=== PATIENT | female | born 1965 | race Caucasian/White ===

== ENCOUNTER 2022-01-10 15:19 | Emergency (ER) | payer MEDICAID ==
[~2022-01-10] VITALS: Ht 154.9 cm; Wt 70.0 kg
[2022-01-10 15:33] VITALS: BP 142/95
== END 2022-01-10 20:20 | disposition left against medical advice (07) ==
LOC: ER 15:19
DX: Z53.21 Procedure and treatment not carried out due to patient leaving prior to being seen by health care provider (principal)

== ENCOUNTER 2022-03-17 10:40 | Emergency (ER) | payer MEDICAID ==
[~2022-03-17] VITALS: Ht 157.5 cm; Wt 75.0 kg
[2022-03-17 10:50] VITALS: BP 143/110
[2022-03-17] MEDS ORDERED: ACETAMINOPHEN 325MG TABLET PO ONE (13:45)
== END 2022-03-17 15:11 | disposition home or self-care (01) ==
LOC: ER 10:40
DX: M79.18 Myalgia, other site (principal); R58 Hemorrhage, not elsewhere classified
CPT/HCPCS: 73030; 99283

== ENCOUNTER 2022-07-11 13:46 | Emergency (ER) | payer MEDICAID ==
[~2022-07-11] VITALS: Ht 157.5 cm; Wt 76.0 kg
[2022-07-11 13:53] VITALS: BP 159/107
[2022-07-11] MEDS ORDERED: ACETAMINOPHEN 325MG TABLET PO ONE (16:45)
[2022-07-11] MEDS ORDERED: ONDANSETRON 4MG ODT PO ONE (16:45)
[2022-07-11] MEDS ORDERED: NAPR-681 MT (18:49)
== END 2022-07-11 19:06 | disposition home or self-care (01) ==
LOC: ER 13:46
DX: R51.9 Headache, unspecified (principal); R03.0 Elevated blood-pressure reading, without diagnosis of hypertension
CPT/HCPCS: 70450; 99284; Q0162

== ENCOUNTER 2022-11-25 09:59 | Inpatient (IN) | payer SELFPAY ==
[~2022-11-25] VITALS: Ht 162.6 cm; Wt 70.3 kg
[~2022-11-25 09:59] MED LIST: NAPR-681 MT
[2022-11-25] MEDS ORDERED: MORPHINE SULFATE 4 MG/ML CPJ (NOT FOR IM USE) IV ONE (10:15)
[2022-11-25 10:31] LABS: BASOPHILS % 0.6 % (0.0-2.0); EOSINOPHILS % 2.2 % (0.0-5.0); HEMATOCRIT. 41.6 % (36.0-48.0); HEMOGLOBIN. 14.4 g/dL (12.0-16.0); LYMPHOCYTES % 29.4 % (20.0-50.0); MEAN CORPUSCULAR HEMOGLOBIN 31.5 pg (28.0-32.0); MEAN CORPUSCULAR VOLUME 91.1 fL (81.0-99.0); MEAN PLATELET VOLUME 7.3 fl (7.4-10.4); MONOCYTES % 8.2 % (2.0-8.0); NEUTROPHILS % 59.6 % (40.0-76.0); PLATELET 313 x1000/uL (130-400); RED BLOOD CELL COUNT 4.56 mill/uL (4.2-5.4); RED CELL DISTRIBUTION WIDTH 12.4 % (11.6-14.6)
[2022-11-25 10:40] LABS: CHLORIDE 106 mEq/L (98-107)
[2022-11-25] MEDS ORDERED: ACETAMINOPHEN 325MG TABLET PO ONE (12:00)
[2022-11-25] MEDS ORDERED: KETOROLAC 30MG/ML VIAL IV ONE (12:45)
[2022-11-25] MEDS ORDERED: METOCLOPRAMIDE HCL 10MG/2ML VIAL IV ONE (12:45)
[2022-11-25] MEDS ORDERED: CLONIDINE 0.1MG TABLET PO PRN (15:00)
[2022-11-25] MEDS: AMLODIPINE 5MG TABLET PO SCH ×2 (15:00→20:56)
[2022-11-25 15:35] LABS: PHOSPHORUS 3.3 mg/dL (2.5-4.9); T4 FREE 1.06 ng/dL (0.76-1.46)
[2022-11-25 15:51] LABS: VITAMIN B12 SERUM 703 pg/mL (211-911)
[2022-11-25 15:53] LABS: FOLIC ACID (FOLATE) SERUM > 20.00 ng/mL (>5.38)
[2022-11-25] MEDS: ASPIRIN 81MG TABLET PO SCH (16:00)
[2022-11-25] MEDS ORDERED: ACETAMINOPHEN 325MG TABLET PO PRN (16:15)
[2022-11-25] MEDS ORDERED: IPRATROPIUM/ALBUTEROL 0.5-3(2.5)MG/3ML NEB HHN PRN (16:15)
[2022-11-25] MEDS ORDERED: GUAIFENESIN 200MG/10ML SUGAR FREE UDC PO PRN (16:15)
[2022-11-25] MEDS ORDERED: DOCUSATE SODIUM 100MG CAPSULE PO PRN (16:15)
[2022-11-25] MEDS ORDERED: MAGNESIUM/ALUMINUM HYDROXIDE/SIMETHICONE 30ML UDC PO PRN (16:15)
[2022-11-25] MEDS ORDERED: ONDANSETRON HCL 4MG/2ML INJ IV PRN (16:15)
[2022-11-25] MEDS: ENOXAPARIN 40MG/0.4ML SYR SUBCUT SCH (16:30)
[2022-11-25] MEDS ORDERED: ATORVASTATIN CALCIUM 40MG TABLET PO SCH (21:00)
[2022-11-25 23:15] VITALS: BP 166/98
[2022-11-26] VITALS: BP 145/82
[2022-11-26 04:00] VITALS: BP 152/91
[2022-11-26] MEDS: ACETAMINOPHEN 325MG TABLET PO PRN ×2 (05:52→12:02)
[2022-11-26] MEDS: DICLOFENAC SODIUM 75MG DR (EC) TABLET PO PRN ×2 (05:52→20:35)
[2022-11-26 06:14] LABS: CLARITY URINE CLEAR (CLEAR); COLOR URINE YELLOW (YELLOW); KETONES URINE NEGATIVE (NEGATIVE); LEUKOCYTE ESTERASE URINE NEGATIVE (NEGATIVE); NITRITE URINE NEGATIVE (NEGATIVE); OCCULT BLOOD URINE NEGATIVE (NEGATIVE); PROTEIN URINE NEGATIVE (NEGATIVE)
[2022-11-26 06:41] LABS: *AMPHETAMINES SCREEN URINE NEGATIVE (NEGATIVE); *BARBITURATES SCREEN URINE NEGATIVE (NEGATIVE); *BENZODIAZEPINES SCREEN URINE NEGATIVE (NEGATIVE); *COCAINE SCREEN URINE NEGATIVE (NEGATIVE); CANNABINOID URINE SCREEN NEGATIVE (NEGATIVE); METHADONE URINE SCREEN NEGATIVE (NEGATIVE); OPIATES URINE SCREEN NEGATIVE (NEGATIVE); PHENCYCLIDINE URINE SCREEN NEGATIVE (NEGATIVE)
[2022-11-26 06:55] LABS: BASOPHILS % 0.4 % (0.0-2.0); EOSINOPHILS % 0.1 % (0.0-5.0); HEMATOCRIT. 42.8 % (36.0-48.0); HEMOGLOBIN. 14.9 g/dL (12.0-16.0); LYMPHOCYTES % 16.4 % (20.0-50.0); MEAN CORPUSCULAR HEMOGLOBIN 31.6 pg (28.0-32.0); MEAN CORPUSCULAR VOLUME 91.2 fL (81.0-99.0); MEAN PLATELET VOLUME 8.2 fl (7.4-10.4); MONOCYTES % 6.7 % (2.0-8.0); NEUTROPHILS % 76.4 % (40.0-76.0); PLATELET 320 x1000/uL (130-400); RED CELL DISTRIBUTION WIDTH 12.5 % (11.6-14.6)
[2022-11-26 07:49] LABS: CHLORIDE 104 mEq/L (98-107)
[2022-11-26 08:00] VITALS: BP 132/77
[2022-11-26 08:40] LABS: HEPATITIS B SURFACE ANTIGEN NEGATIVE
[2022-11-26] MEDS ORDERED: METOPROLOL TARTRATE 5MG/5ML VIAL IV PRN (09:00)
[2022-11-26] MEDS: AMLODIPINE 5MG TABLET PO SCH ×2 (09:38→20:26)
[2022-11-26] MEDS: ASPIRIN 81MG TABLET PO SCH (09:38)
[2022-11-26] MEDS: CHLORTHALIDONE 25MG TABLET PO SCH (09:39)
[2022-11-26] MEDS: PANTOPRAZOLE 40MG DR TABLET PO SCH (09:39)
[2022-11-26 12:00] VITALS: BP 127/74
[2022-11-26 16:00] VITALS: BP 141/91
[2022-11-26] MEDS: ENOXAPARIN 40MG/0.4ML SYR SUBCUT SCH (18:07)
[2022-11-26 20:00] VITALS: BP 152/90
[2022-11-27] VITALS: BP 114/69
[2022-11-27 04:00] VITALS: BP 116/73
[2022-11-27 05:27] LABS: BASOPHILS % 0.3 % (0.0-2.0); EOSINOPHILS % 2.5 % (0.0-5.0); HEMATOCRIT. 43.2 % (36.0-48.0); HEMOGLOBIN. 14.6 g/dL (12.0-16.0); LYMPHOCYTES % 29.5 % (20.0-50.0); MEAN CORPUSCULAR HEMOGLOBIN 31.2 pg (28.0-32.0); MEAN CORPUSCULAR VOLUME 92.5 fL (81.0-99.0); MEAN PLATELET VOLUME 7.5 fl (7.4-10.4); MONOCYTES % 11.1 % (2.0-8.0); NEUTROPHILS % 56.6 % (40.0-76.0); PLATELET 333 x1000/uL (130-400); RED BLOOD CELL COUNT 4.67 mill/uL (4.2-5.4); RED CELL DISTRIBUTION WIDTH 12.5 % (11.6-14.6)
[2022-11-27 05:48] LABS: CHLORIDE 103 mEq/L (98-107)
[2022-11-27] MEDS: PANTOPRAZOLE 40MG DR TABLET PO SCH (06:20)
[2022-11-27 08:00] VITALS: BP 118/74
[2022-11-27] MEDS: ASPIRIN 81MG TABLET PO SCH (08:34)
[2022-11-27] MEDS: CHLORTHALIDONE 25MG TABLET PO SCH (08:34)
[2022-11-27] MEDS: AMLODIPINE 5MG TABLET PO SCH (08:48)
[2022-11-27 12:00] VITALS: BP 112/76
[2022-11-27 13:51] VITALS: BP 112/76
[2022-11-28] MEDS ORDERED: FAMOTIDINE 20MG TABLET PO SCH (07:40)
== END 2022-11-27 15:15 | disposition home or self-care (01) | DRG 243 ==
LOC: ER 09:59 → EDBEDREQ 12:32 → 7WST 12:39
PROVIDERS: ADMIT Hospitalist; ATTEND Hospitalist
DX: K21.9 Gastro-esophageal reflux disease without esophagitis (principal); I20.0 Unstable angina; M94.0 Chondrocostal junction syndrome [Tietze]; R74.01 Elevation of levels of liver transaminase levels; E78.5 Hyperlipidemia, unspecified; I51.7 Cardiomegaly; R10.13 Epigastric pain; K22.4 Dyskinesia of esophagus
CPT/HCPCS: 36415; 71045; 80048; 80053; 80061; 80305; 80320; 81003; 82607; 82746; 83036; 83735; 83880; 84100; 84439; 84443; 84484; 85025; 85379; 86803; 87340; 93005; 93306; 93970; 99285; J1650; J1885; J2270; J2405; J2765; G0480

== ENCOUNTER 2023-10-24 18:58 | Emergency (ER) | payer MEDICAID, OTHER ==
[~2023-10-24] VITALS: Ht 162.6 cm; Wt 75.0 kg
[2023-10-24 19:04] VITALS: O2SAT 94
[2023-10-24] MEDS: KETOROLAC 30MG/ML VIAL IV ONE (20:14)
[2023-10-24] MEDS: ASPIRIN 81MG TABLET PO ONE (20:15)
[2023-10-24] MEDS: NITROGLYCERIN OINT 1GM/INCH UDPKT TD ONE (20:18)
[2023-10-24 20:38] LABS: BASOPHILS % 0.7 % (0.0-2.0); EOSINOPHILS % 3.2 % (0.0-5.0); HEMOGLOBIN. 13.4 g/dL (12.0-16.0); LYMPHOCYTES % 34.5 % (20.0-50.0); MEAN CORPUSCULAR HEMOGLOBIN 31.4 pg (28.0-32.0); MEAN CORPUSCULAR HGB CONC 34.3 g/dL (31.0-37.0); MEAN CORPUSCULAR VOLUME 91.6 fL (81.0-99.0); MEAN PLATELET VOLUME 7.3 fl (7.4-10.4); MONOCYTES % 9.2 % (2.0-8.0); NEUTROPHILS % 52.4 % (40.0-76.0); PLATELET 294 x1000/uL (130-400); RED BLOOD CELL COUNT 4.26 mill/uL (4.2-5.4); RED CELL DISTRIBUTION WIDTH 12.6 % (11.6-14.6); WHITE BLOOD COUNT 6.6 x1000/uL (4.5-11.0)
[2023-10-24 20:44] LABS: CHLORIDE 107 mEq/L (98-107); POTASSIUM 4.2 mEq/L (3.5-5.1); SODIUM 139 mEq/L (136-145)
[2023-10-24 20:45] LABS: CARBON DIOXIDE 29 mEq/L (21-32)
[2023-10-24 20:46] LABS: PROTHROMBIN TIME 10.9 sec (9.6-11.0)
[2023-10-24 20:50] LABS: CREATININE 0.6 mg/dL (0.6-1.0); GLUCOSE 90 mg/dL (70-105); UREA NITROGEN BLOOD 15 mg/dL (9-23)
[2023-10-24 20:52] LABS: ALANINE AMINOTRANSFERASE 26 IU/L (10-49); ALBUMIN 4.4 g/dL (3.2-4.8); ASPARTATE AMINOTRANSFERASE 26 IU/L (<34); BILIRUBIN TOTAL 0.6 mg/dL (0.1-1.0); ETHANOL BLOOD < 10 mg/dL (<10); TROPONIN I HIGH SENSITIVITY < 4 ng/L (3.0-34)
[2023-10-24 20:53] LABS: PROTEIN TOTAL 7.8 g/dL (6.0-8.3)
[2023-10-24 23:30] VITALS: BP 145/92; PULSE 74; RESP 16; TEMP 98.2
== END 2023-10-24 23:48 | disposition short-term general hospital (02) ==
LOC: ER 18:58
DX: R07.89 Other chest pain (principal); I10 Essential (primary) hypertension; Z91.148 Patient's other noncompliance with medication regimen for other reason
CPT/HCPCS: 80053; 80320; 83880; 85025; 85610; 84484; 36415; 71045; 93005; 96374; 99285; Z7610 ×2; J1885; G0480

== ENCOUNTER 2023-12-21 20:10 | Emergency (ER) | payer OTHER ==
[~2023-12-21] VITALS: Ht 154.9 cm; Wt 72.0 kg
[2023-12-21 20:14] VITALS: BP 154/133; TEMP 98.2; O2SAT 100
[2023-12-21] MEDS ORDERED: NAPR500T7 MT (21:12)
[2023-12-21] MEDS: KETOROLAC 30MG/ML VIAL IM ONE (21:20)
[2023-12-21 21:22] VITALS: PULSE 78; RESP 18
== END 2023-12-21 21:24 | disposition home or self-care (01) ==
LOC: ER 20:16
DX: K08.89 Other specified disorders of teeth and supporting structures (principal); I10 Essential (primary) hypertension
CPT/HCPCS: 96372; 99283; J1885

== ENCOUNTER 2024-06-29 10:21 | Emergency (ER) | payer OTHER, MEDICAID ==
[~2024-06-29] VITALS: Ht 154.9 cm; Wt 79.3 kg
[~2024-06-29 10:21] MED LIST changes: +NAPR-1486 MT; -NAPR-681 MT
[2024-06-29 10:31] VITALS: O2SAT 97
[2024-06-29] MEDS: IBUPROFEN 600MG TABLET PO ONE (14:52)
[2024-06-29] MEDS ORDERED: IBUP-2029 MT (15:28)
[2024-06-29 15:45] VITALS: BP 144/98; PULSE 74; RESP 20; TEMP 36.89184; O2SAT 97
== END 2024-06-29 15:54 | disposition home or self-care (01) ==
LOC: ER 10:21
DX: M79.602 Pain in left arm (principal); I10 Essential (primary) hypertension
CPT/HCPCS: 73060; 99283; A4565